=== PATIENT | male | born 2000 | race American Indian/Alaskan Native ===

== ENCOUNTER 2021-08-25 14:47 | Emergency (ER) | payer MEDICAID ==
[2021-08-25 15:04] VITALS: BP 125/75
[2021-08-25 17:56] LABS: Mucus,Urine FEW /HPF
[2021-08-25] MEDS ORDERED: LIDOCAINE-MPF (1%) 10 MG/1 ML VIAL 5 ML INFILTRATI ONE (18:57)
[2021-08-25 19:13] LABS: Bilirubin,Urine Negative (Negative); Color,Urine Yellow (Yellow)
[2021-08-25 19:14] LABS: Blood,Urine Negative (Negative)
--- NOTE | 2021-08-25 19:18 | Emergency Department Report ---
ED Male HPI - General Chief complaint: Urogenital-Male Stated complaint: STD SYMPTOMS Source: patient Mode of arrival: Ambulatory Limitations: No Limitations - History of Present Illness Initial comments: Patient is a 21-year-old male with no past medical history presents to the ED with complaint of acute onset persistent dysuria, urinary frequency and urgency and penile discharge after having unprotected sexual intercourse 4 days ago. Patient states that the pain is constant and persistent, severe on urination. Patient denies fever, chills, nausea and vomiting, dizziness, syncope, abdominal pain, testicular pain, hematuria, low back pain, or headache. MD Complaint: penile discharge, dysuria, other (urinary urgency and frequency) -: Sudden, days(s) (4) Location: penis Radiation: none Severity: moderate Severity scale (0 -10): 6 Quality: burning, sharp Consistency: intermittent Improves with: none Worsens with: urination new sexual partner denies other symptoms, discharge, dysuria. denies: swelling, mass, rash, urinary retention, blood in urine, fever, nausea/vomiting, incontinence, other - Related Data Sexually active: Yes Previous Rx's Medication Instructions Recorded Last Taken Type Doxycycline Hyclate 100 mg PO Q12H #20 cap 08/25/21 Unknown Rx Ibuprofen [Motrin] 600 mg PO Q8H PRN #24 tablet 08/25/21 Unknown Rx Allergies Allergy/AdvReac Type Severity Reaction Status Date / Time No Known Allergies Allergy Unverified 08/25/21 15:04 ED Review of Systems ROS: Stated complaint: STD SYMPTOMS Other details as noted in HPI Constitutional: denies: chills, fever Eyes: denies: eye pain, eye discharge, vision change ENT: denies: ear pain, throat pain Respiratory: denies: cough, shortness of breath, wheezing Cardiovascular: denies: chest pain, palpitations Endocrine: no symptoms reported Gastrointestinal: denies: abdominal pain, nausea, diarrhea Genitourinary: urgency, dysuria, frequency, discharge. denies: hematuria, testicular pain, testicular mass Musculoskeletal: denies: back pain, joint swelling, arthralgia Skin: denies: rash, lesions Neurological: denies: headache, weakness, paresthesias Psychiatric: denies: anxiety, depression Hematological/Lymphatic: denies: easy bleeding, easy bruising ED Past Medical Hx - Medications Home Medications: Home Medications Medication Instructions Recorded Confirmed Last Taken Type Doxycycline Hyclate 100 mg PO Q12H #20 cap 08/25/21 Unknown Rx Ibuprofen [Motrin] 600 mg PO Q8H PRN #24 tablet 08/25/21 Unknown Rx ED Physical Exam - General Limitations: No Limitations General appearance: alert, in no apparent distress - Head Head exam: Present: atraumatic, normocephalic, normal inspection - Eye Eye exam: Present: normal appearance, PERRL, EOMI Pupils: Present: normal accommodation - ENT ENT exam: Present: normal exam, normal orophraynx, mucous membranes moist, TM's normal bilaterally, normal external ear exam - Neck Neck exam: Present: normal inspection, full ROM. Absent: tenderness - Respiratory Respiratory exam: Present: normal lung sounds bilaterally. Absent: respiratory distress, wheezes, rales, rhonchi, chest wall tenderness, prolonged expiratory - Cardiovascular Cardiovascular Exam: Present: regular rate, normal rhythm, normal heart sounds. Absent: systolic murmur, diastolic murmur, rubs, gallop - GI/Abdominal GI/Abdominal exam: Present: soft, normal bowel sounds. Absent: tenderness, guarding, hyperactive bowel sounds, hypoactive bowel sounds, organomegaly - External exam: Present: other (Genital exam deferred at this time) - Extremities Exam Extremities exam: Present: normal inspection, full ROM, normal capillary refill. Absent: tenderness - Back Exam Back exam: Present: normal inspection, full ROM. Absent: tenderness, CVA tenderness (R), CVA tenderness (L), muscle spasm, paraspinal tenderness, vertebral tenderness - Neurological Exam Neurological exam: Present: alert, oriented X3, CN II-XII intact, normal gait, reflexes normal - Psychiatric Psychiatric exam: Present: normal affect, normal mood - Skin Skin exam: Present: warm, dry, intact, normal color. Absent: rash ED Course Vital Signs 08/25/21 15:01 Temperature 98.8 F Pulse Rate 86 Respiratory 18 Rate Blood Pressure 125/75 [Right] O2 Sat by Pulse 99 Oximetry ED Medical Decision Making - Medical Decision Making This is a 21-year-old male with no past medical history presents to the ED with complaint of acute onset persistent dysuria, urinary frequency and urgency and penile discharge after having unprotected sexual intercourse 4 days ago. Patient states that the pain is constant and persistent, severe on urination. In the ED, patient is alert and oriented x3 and is not in any distress. Urinalysis was reviewed and the patient was treated empirically for gonorrhea and chlamydia in the ED. Patient received Rocephin 1 g intramuscular injection and discharged home on doxycycline 100 mg twice a day for 10 days. Patient was advised to follow-up with his primary care physician or [facility] department for further STD testing including HIV and syphilis. Patient was also advised to ensure that his sexual partner also gets treated for the same. Patient was otherwise advised return to the ED immediately if symptoms get worse. - Differential Diagnosis Gonorrhea urethritis; chlamydia, ureteritis; trichomonas; UTI; Critical care attestation.: If time is entered above; I have spent that time in minutes in the direct care of this critically ill patient, excluding procedure time. ED Disposition Clinical Impression: Urethritis, nonspecific, Sexually transmitted disease (STD), Acute urinary tract infection, Gonorrhea in male Disposition: 01 HOME / SELF CARE / HOMELESS Is pt being admited?: No Does the pt Need Aspirin: No Condition: Stable Instructions: Chlamydia, Male, Urinary Tract Infection, Adult, [id number], Urethritis, Adult, Gonorrhea Additional Instructions: Take medication with food, drink plenty of fluids, follow-up with the [facility] department for further STD testing including HIV and syphilis. And showed that your sexual partner also was treated for the same. Return to the ED immediately if symptoms get worse Prescriptions: Doxycycline Hyclate 100 mg PO Q12H #20 cap Ibuprofen [Motrin] 600 mg PO Q8H PRN #24 tablet PRN Reason: Pain Referrals: SANDHYA STOCKTON MD [Primary Care Provider] - 3-5 Days Forms: STI Treatment and Prevention Time of Disposition: 19:19 Print Language: SWEDISH
[2021-08-25 19:20] LABS: Bacteria,Urine 2+ /HPF (Negative)
== END 2021-08-25 19:20 | disposition home or self-care (01) ==
LOC: ED 14:47
DX: N34.2 Other urethritis (principal); Z20.2 Contact with and (suspected) exposure to infections with a predominantly sexual mode of transmission; A54.9 Gonococcal infection, unspecified
CPT/HCPCS: 81001; 87086; 96372; 99282; J0696; J3490